=== PATIENT | male | born 1995 | race Caucasian/White ===

== ENCOUNTER 2022-09-03 14:27 | Inpatient (IN) | payer OTHER ==
[2022-09-03 16:09] VITALS: BMI 30.5
[2022-09-03] MEDS ORDERED: guaiFENesin 600 MG TABLET.ER (FP) PO PRN (17:38)
[2022-09-03] MEDS ORDERED: MAGNESIUM HYDROX 2400MG/30ML ORAL SUSPENSION 30 ML CUP PO PRN (17:38)
[2022-09-03] MEDS ORDERED: LOPERAMIDE HCL 2 MG CAPSULE PO PRN (17:38)
[2022-09-03] MEDS ORDERED: NALOXONE HCL (KLOXXADO) 8 MG SPRAY NS PRN (17:38)
[2022-09-03] MEDS ORDERED: BENZONATATE 200 MG CAPSULE PO PRN (17:38)
[2022-09-03] MEDS ORDERED: ACETAMINOPHEN 325 MG TABLET (FP) PO PRN (17:38)
[2022-09-03] MEDS ORDERED: BENZOCAINE/MENTHOL (CHLORASEPTIC ) LOZENGE MM PRN (17:38)
[2022-09-03] MEDS ORDERED: IBUPROFEN 400 MG TABLET (FP) PO PRN (17:38)
[2022-09-03] MEDS ORDERED: IBUPROFEN 600 MG TABLET (FP) PO PRN (17:38)
[2022-09-03] MEDS ORDERED: POLYETHYLENE GLYCOL (HEALTHYLAX) 3350 17 GM PACKET PO PRN (17:38)
[2022-09-03] MEDS ORDERED: NICOTINE POLACRILEX 2 MG GUM BC PRN (17:38)
[2022-09-03] MEDS ORDERED: NALOXONE HCL 0.4 MG/ML VIAL IM PRN (17:38)
[2022-09-03] MEDS ORDERED: hydrOXYzine PAMOATE 25 MG CAPSULE (FP) PO PRN (17:38)
[2022-09-03] MEDS ORDERED: MAG HYDROX/AL HYDROX/SIMETH 30 ML UNIT-DOSE CUP PO PRN (17:38)
[2022-09-03] MEDS ORDERED: THIAMINE HCL 100 MG TABLET (FP) PO SCH (22:00)
[2022-09-03] MEDS ORDERED: MELATONIN 5 MG TABLETS PO SCH (22:00)
[2022-09-03] MEDS ORDERED: TUBERCULIN PPD 5 TU/0.1ML VIAL ID ONE (22:07)
[2022-09-04 07:07] VITALS: BP 106/65; PULSE 70; TEMP 98
[2022-09-04] MEDS ORDERED: PRENATAL VITAMINS W/ FOLIC ACID TABLET (FP) PO SCH (10:00)
[2022-09-04] MEDS ORDERED: NICOTINE 14 MG/24 HOURS TOPICAL PATCH TD SCH (10:00)
[2022-09-04] MEDS ORDERED: BENZTROPINE MESYLATE 1 MG TABLET PO PRN (12:43)
[2022-09-04] MEDS ORDERED: risperiDONE 1 MG TABLET PO SCH (12:45)
[2022-09-04 14:05] VITALS: RESP 18
== END 2022-09-04 14:30 | disposition left against medical advice (07) | DRG 894 ==
LOC: YASAS 14:27 → Y3W 20:59
PROVIDERS: ADMIT Allergy & Immunology; ATTEND Psychiatry & Neurology Pain Medicine
PROC: HZ42ZZZ Group Counseling for Substance Abuse Treatment, Cognitive-Behavioral (ICD-10-PCS; principal; 2022-09-03)
DX: F14.20 Cocaine dependence, uncomplicated (principal); F19.282 Other psychoactive substance dependence with psychoactive substance-induced sleep disorder; F12.20 Cannabis dependence, uncomplicated; F17.210 Nicotine dependence, cigarettes, uncomplicated; F20.9 Schizophrenia, unspecified; F19.24 Other psychoactive substance dependence with psychoactive substance-induced mood disorder; R40.0 Somnolence; Z59.00 Homelessness unspecified; Z56.0 Unemployment, unspecified
CPT/HCPCS: 87811; 93005; 93010; C9803-CS; U0003; U0005